=== PATIENT | male | born 1975 | race Caucasian/White ===

== ENCOUNTER 2018-09-26 00:17 | Emergency (ER) | payer OTHER ==
[~2018-09-26] VITALS: Ht 167.6 cm; Wt 77.1 kg
[2018-09-26 00:41] VITALS: BP 131/79
[2018-09-26] MEDS ORDERED: TETANUS-DIPTH-ACEL PERTUSSIS 0.5ML SYRG IM ONE (01:45)
[2018-09-26] MEDS ORDERED: cefTRIAXone SOD 1,000 MG VL IM ONE (01:45)
[2018-09-26] MEDS ORDERED: AMOXICILLIN/CLAVUL 875 MG TAB PO ONE (01:45)
[2018-09-26] MEDS ORDERED: LIDOCAINE W/ EPINEPHRINE 2% INJ 20ML VIAL IJ ONE (01:45)
== END 2018-09-26 03:02 | disposition home or self-care (01) ==
LOC: ER 00:22
DX: S51.811A Laceration without foreign body of right forearm, initial encounter (principal); W54.0XXA Bitten by dog, initial encounter; Y93.89 Activity, other specified; Y99.8 Other external cause status; Y92.89 Other specified places as the place of occurrence of the external cause
CPT/HCPCS: 12002; 73060; 73090; 90471; 90715; 96372; 99283; J0696